=== PATIENT | female | born 1965 | race Caucasian/White ===

== ENCOUNTER 2020-12-13 04:53 | Emergency (ER) | payer OTHER, SELFPAY ==
--- NOTE | ~2020-12-13 | CT_ITS ---
EXAMINATION: CT ABDOMEN AND PELVIS WITH CONTRAST CLINICAL INFORMATION: Diffuse abdominal discomfort COMPARISON: None TECHNIQUE: Multidetector volumetric images were obtained from the superior aspect of the liver through the pubic symphysis following administration 85 mL of Omnipaque 350 intravenous contrast. Sagittal and coronal reformatted images were obtained on the technologist's workstation. Oral contrast: No This CT examination was performed using dose optimization techniques as appropriate, variously including the following: *Automated exposure control *Adjustment of mA and/or kV according to patient size (this includes techniques or standardized protocols for targeted exams where dose is matched to indication/reason for exam; i.e. extremities or head) *Use of iterative reconstruction technique DLP: 648 mGy-cm FINDINGS: LUNG BASES: The visualized lung bases are unremarkable. LIVER, GALLBLADDER, AND BILIARY TREE: The liver is normal in size, shape, and attenuation. There is a 1.90 left hepatic lobe 5 mm right hepatic lobe hypodense lesions likely cysts. No intrahepatic ductal dilatation seen. The gallbladder has been surgically removed. PANCREAS: Unremarkable. SPLEEN: Unremarkable. ADRENAL GLANDS: Unremarkable. KIDNEYS AND URETERS: The kidneys are normal in size, shape, and attenuation. No hydronephrosis, hydroureter, or calculi seen. No perinephric stranding. There is a 1.2 cm upper pole and 1 cm midpole left renal cyst. BLADDER: Unremarkable. GASTROINTESTINAL TRACT: There is nonspecific mild mural thickening involving the toe and fourth segments of the duodenum and proximal jejunum. It is best visualized on axial images 35 through 42/3. Question small bowel enteritis, less likely peristaltic changes. There is fluid visualized in the rest of the small bowel loops without distention.. There is air-fluid level seen throughout the colon without distention. Question early ileus. ABDOMINAL WALL: No significant hernia is appreciated. LYMPH NODES: Normal. VASCULAR: Unremarkable. PELVIC VISCERA: The uterus is anteverted and appears unremarkable. There is no free fluid. OSSEOUS STRUCTURES: Unremarkable. CT/CT abdomen pelvis w con IMPRESSION: No acute process. There is a nonspecific mild mural thickening involving distal duodenum and proximal jejunum suggestive of small bowel enteritis. No adjacent abnormal lymph nodes. Correlate with clinical history. There is nondilated air-fluid levels seen throughout the colon. There is fluid seen in the rest of small bowel loops without distention.. Question early ileus
[2020-12-13 05:10] VITALS: BP 110/70; BP 121/79; PULSE 106; PULSE 75; RESP 16; O2SAT 98; O2SAT 99; BMI 30.2
--- NOTE | 2020-12-13 05:56 | PC.NURSE ---
PT TO ROOM CHG INTO GOWN AND AWAITING MD'S EVAL. IV PLACED TO LAC, LABS DRAWN TO LAB, NS UP AND RUNNING W/O, SITE INTACT. WILL CONTINUE TO MONITOR PT.
[2020-12-13 06:00] VITALS: BP 116/67; PULSE 78; RESP 16; TEMP 36.7; O2SAT 98
[2020-12-13] MEDS: 0.9 % Sodium Chloride 1,000 ML 999 ML IV ×2 (06:00→08:15)
[2020-12-13 06:06] LABS: MANUAL DIFF FLAG NO
[2020-12-13 06:07] LABS: Basophils Percent Auto 0.1 % (0-2); Eosinophils Absolute Auto 0.2 X10*3/uL (0.0-0.4); Eosinophils Percent Auto 2.6 % (0-4); Hematocrit 47.7 % (37-47); Hemoglobin 16.2 g/dl (12.0-16.0); Imm Gran Abs Auto 0.03 X10*3/uL (0.00-0.03); Imm Gran Pct Auto 0.4 % (0.0-0.4); Lymphocytes Absolute Auto 1.1 X10*3/uL (1.2-4.9); Lymphocytes Percent Auto 16.2 % (20-40); Mean Corpuscular Hemoglobin 29.3 pg (27.0-33.0); Mean Corpuscular Volume 86.4 fL (80-98); Mean Platelet Volume 10.1 fL (9.4-12.3); Monocytes Absolute Auto 0.8 X10*3/uL (0.1-1.2); Monocytes Percent Auto 11.4 % (2-11); Neutrophils Absolute Auto 4.9 X10*3/uL (2.0-8.3); Neutrophils Percent Auto 69.3 % (45-73); Platelet Count 258 X10*3/uL (160-400); Red Blood Count 5.52 X10*6/uL (4.20-5.50)
[2020-12-13 06:26] LABS: Alanine Aminotransferase 13 U/L (0-31); Albumin Level 4.1 g/dL (3.5-5.0); Alkaline Phosphatase 74 U/L (39-117); Anion Gap 18 (12-20); Aspartate Amino Transferase 13 U/L (5-31); Bilirubin Total 0.5 mg/dL (0.0-1.0); Blood Urea Nitrogen 17 mg/dL (9-16); Calcium 9.8 mg/dL (8.4-10.2); Carbon Dioxide 21 mmol/L (22-29); Chloride 103 mmol/L (96-108); Creatinine Clr Calc Pharmacy 66.1; Estimated Glomerular Filt Rate 60; Glucose Random 110 mg/dL (60-115); Potassium 3.7 mmol/L (3.3-5.1); Sodium 138 mmol/L (135-145)
--- NOTE | 2020-12-13 06:57 | ED.NAVMDI ---
HPI - Nausea/Vomiting/Diarrhea General Chief complaint: Nausea/Vomiting/Diarrhea Stated complaint: WEAK, N/V/D X'S 36 HOURS Time Seen by Provider: 12/13/20 06:57 Source: patient Mode of arrival: EMS History of Present Illness HPI Narrative: 55-year-old female presents without significant past medical history and states that she has been having nausea, vomiting, diarrhea for the past 3 days and denies any new medications, changes in medications, antibiotics within the past 3 months, recent travel, drinking reverse/stream water, and unclear whether not she may have eaten contaminated food. However, patient denies that this is likely to have happened. She states she is also having some crampy abdominal discomfort but denies any urinary pain/burning, shortness of breath, chest pain/palpitations. Related Data Home Medications Medication Instructions Recorded Confirmed escitalopram oxalate 12/13/20 Allergies Allergy/AdvReac Type Severity Reaction Status Date / Time Sulfa (Sulfonamide Allergy Mild Rash Verified 12/13/20 07:02 Antibiotics) Review of Systems Review of Systems: Pertinent positives and negatives as stated in HPI 10 point review systems otherwise negative. PMFSH Past Medical History Source: nursing notes reviewed Medical History Anxiety Social History Social History Advance Directives: No Advance Directives Information Provided: No Patient : No Physical Exam Vital Signs: Vital Signs: Last Vital Signs Temp 98.1 F 12/13/20 06:00 Pulse 78 12/13/20 06:00 Resp 16 12/13/20 06:00 BP 116/67 12/13/20 06:00 Pulse Ox 98 12/13/20 06:00 Body Mass Index 30.2 VITAL SIGNS: Reviewed. GENERAL: Well developed, well nourished, in no acute distress. HEAD: Normocephalic/atraumatic EYES: PERRLA, EOMI OROPHARYNX: no oral lesions noted, posterior pharynx clear, dry mucosa NECK: Supple, no adenopathy LUNGS: Normal breath sounds. No adventitious sounds or accessory muscle use. SpO2<98> CARDIOVASCULAR: Regular rate and rhythm without noted murmurs ABDOMEN: Soft, mild diffuse abdominal tenderness without rebound, non-distended with bowel sounds. MUSCULOSKELETAL: No tenderness, deformities, or effusions noted on gross inspection. EXTREMITIES: No cyanosis, clubbing or edema. SKIN: Inspection of the skin reveals no rashes, ulcerations, jaundice, pallor, or petechiae. NEUROLOGIC: Alert and oriented x 4. Strength and sensation to light touch were grossly intact x 4. Course Course Course Narrative: 55-year-old female with history and clinical presentation suggestive of gastroenteritis, colitis. Signed out to Dr Isbell: f/u CT scan, PO challenge, stool MDM - Nausea/Vomiting/Diarrhea Lab Data Result diagrams: 12/13/20 06:01 12/13/20 06:01 Labs: Lab Results 12/13/20 12/13/20 Range/Units 06:01 06:01 WBC 7.0 (4.8-10.8) X10*3/uL RBC 5.52 H (4.20-5.50) X10*6/uL Hgb 16.2 H (12.0-16.0) g/dl Hct 47.7 H (37-47) % MCV 86.4 (80-98) fL MCH 29.3 (27.0-33.0) pg MCHC 34.0 (31.0-35.0) g/dl RDW 13.0 (11.0-16.0) % Plt Count 258 (160-400) X10*3/uL MPV 10.1 (9.4-12.3) fL Immature Gran % (Auto) 0.4 (0.0-0.4) % Neut % (Auto) 69.3 (45-73) % Lymph % (Auto) 16.2 L (20-40) % Callaway % (Auto) 11.4 H (2-11) % Eos % (Auto) 2.6 (0-4) % Baso % (Auto) 0.1 (0-2) % Lymph # (Auto) 1.1 L (1.2-4.9) X10*3/uL [place]away # (Auto) 0.8 (0.1-1.2) X10*3/uL Eos # (Auto) 0.2 (0.0-0.4) X10*3/uL Baso # (Auto) 0.0 (0.0-0.2) X10*3/uL Abs Immat Gran (auto) 0.03 (0.00-0.03) X10*3/uL Absolute Neuts (auto) 4.9 (2.0-8.3) X10*3/uL Absolute Nucleated RBC 0.000 (0.0-0.012) X10*3/uL Nucleated RBC % (auto) 0.0 (0.0-0.2) /100WBC Sodium 138 (135-145) mmol/L Potassium 3.7 (3.3-5.1) mmol/L Chloride 103 (96-108) mmol/L Carbon Dioxide 21 L (22-29) mmol/L Anion Gap 18 (12-20) BUN 17 H (9-16) mg/dL Creatinine 0.96 (0.5-1.4) mg/dL Estim Creat Clear Calc 66.1 Estimated GFR 60 Random Glucose 110 (60-115) mg/dL Calcium 9.8 (8.4-10.2) mg/dL Total Bilirubin 0.5 (0.0-1.0) mg/dL AST 13 (5-31) U/L ALT 13 (0-31) U/L Alkaline Phosphatase 74 (39-117) U/L Total Protein 7.0 (6.5-8.0) g/dL Albumin 4.1 (3.5-5.0) g/dL Discharge Plan Discharge Prescriptions: No Action escitalopram oxalate RF: 0
[2020-12-13] MEDS: iohexoL 350 MG/ML 100 ML INFUS..BTL IV (07:39)
[2020-12-13] MEDS: ondansetron HCL 4 MG/2 ML VIAL IVPUSH (08:14)
[2020-12-13] MEDS: 0.9 % Sodium Chloride 1,000 ML 999 ML IVCONT ×2 (08:22→10:50)
[2020-12-13 08:35] VITALS: BP 127/72; PULSE 72; RESP 20; TEMP 36.7; O2SAT 97
[2020-12-13] MEDS: Morphine Sulfate 4 MG/ML CARTRIDGE IVPUSH (08:43)
--- NOTE | 2020-12-13 08:55 | PC.NURSE ---
Pt alert and oriented x3. Reports multiple episodes of n/d. She denies pain at this time. BS hyperactive throughout. Pt in no apparent distress. Fluid hung, meds given as documented. at bedside.
[2020-12-13 10:59] LABS: Leukocytes Stool Qualitative FEW: < 2/OIF (NEGATIVE)
[2020-12-13 13:00] LABS: CDiff Gene PCR NEGATIVE (Negative)
== END 2020-12-13 13:45 | disposition home or self-care (01) ==
PROVIDERS: Student in an Organized Health Care Education/Training Program; Emergency Provider Emergency Medicine
DX: K52.9 Noninfective gastroenteritis and colitis, unspecified (principal); K56.7 Ileus, unspecified
CPT/HCPCS: 36415; 74177; 80053; 85025; 87045; 87046; 87329; 87493; 89055; 96361; 96374; 96375; 99284; J2270; J2405; Q9967